=== PATIENT | female | born 1990 | race Caucasian/White ===

== ENCOUNTER 2017-09-07 09:03 | Emergency (ER) | END 2017-09-07 11:30 | disposition home or self-care (01) ==

== ENCOUNTER 2018-04-19 21:16 | Inpatient (IN) | payer OTHER ==
[~2018-04-19] VITALS: Ht 165.1 cm; Wt 95.9 kg
[~2018-04-19 21:16] MED LIST: ACET500C5 PO; ONDA4TAB8 PO
[2018-04-19] MEDS ORDERED: LACTATED RINGER'S 1,000 ML IV PRN (22:17)
[2018-04-19] MEDS ORDERED: OXYTOCIN 30 UNITS/LR 500 ML IV PRN (22:30)
[2018-04-19] MEDS ORDERED: MISOPROSTOL 200 MCG TAB PR PRN (22:30)
[2018-04-19] MEDS ORDERED: BUTORPHANOL 2 MG INJ IV PRN (22:30)
[2018-04-19] MEDS ORDERED: IBUPROFEN 600 MG TAB PO PRN (22:30)
[2018-04-19] MEDS ORDERED: LIDOCAINE 1% (MPF) 30 ML INJ INJ PRN (22:30)
[2018-04-19] MEDS ORDERED: CARBOPROST 250 MCG INJ IM PRN (22:30)
[2018-04-19] MEDS ORDERED: BUTORPHANOL 1 MG INJ IV PRN (22:30)
[2018-04-19] MEDS ORDERED: MINERAL OIL LIGHT 10 ML VIAL TOP ONE (22:30)
[2018-04-19] MEDS ORDERED: METHYLERGONOVINE 0.2 MG INJ IM PRN (22:30)
[2018-04-19] MEDS ORDERED: AMPICILLIN 2 GM/NS (PMX) 100 ML IV ONE (22:30)
[2018-04-19] MEDS ORDERED: OXYTOCIN 30 UNITS/LR 500 ML IV SCH ×3 (22:30)
[2018-04-19 22:37] VITALS: BP 112/59; PULSE 96; RESP 18
[2018-04-19 22:40] VITALS: Ht 165.1 cm; Wt 95.9 kg
[2018-04-19] MEDS: LACTATED RINGER'S 1,000 ML IV SCH (22:41)
--- NOTE | 2018-04-19 22:56 | TRIAGE ---
OB Triage Datetime Report Generated by CPN: 04/19/2018 22:56 Datetime: 04/19/2018 22:47 Assessment Type: Admission Assessment Maternal Assessment Level of Consciousness: Fully Conscious DTR's/Clonus: DTRs 2+; No Clonus Headache: Denies Blurred Vision: No Respiratory Effort: Unlabored; Regular Rhythm; Equal Expansion Breath Sounds, Left: Clear and Equal Breath Sounds, Right: Clear and Equal Nausea/Vomiting: Denies RUQ Epigastric Pain: Denies Facial Edema: None Fall Risk Assessment History of Falling: (0) No Secondary Diagnosis: (0) No Ambulatory Aid: (0) Bedrest/Nurse Assist IV Therapy: (0) No Gait: (0) Normal/Bedrest/Immobile Mental Status: (0) Oriented to Own Ability Fall Score: 0 Fall Risk Score Definition: No Risk: No action required Datetime: 04/19/2018 22:41 Time of Arrival: 04/06/2018 21:05 EGA: 36.6 Arrived By: Ambulatory Arrived From: Home Chief Complaint: sent from Dr. Melton office 5cm Movement: Present Contractions: Denies/Absent Time Contractions Began: 04/18/2018 20:30 Rupture of Membranes: Denies Vaginal Bleeding: None Vaginal Discharge: Denies Recent Sexual Intercouse: Denies Abdominal Trauma: Not Applicable Patient Complaints: None Time Provider Notified: 04/19/2018 21:45 Provider Notified: DR. MELTON Initial Plan: ADMIT TO L_D. VE Datetime: 04/19/2018 22:37 Temperature Route: Oral Datetime: 04/19/2018 21:35 Stage of : OB Triage Heart Rate FHR Baseline Rate: 150 Monitor Mode: External US Vaginal Exam Dilatation (cms): 5.0 Effacement (%): 70 Station: -2 Exam By: Marlin Manuel Status: Intact Vaginal Bleeding: Scant Cervix, Consistency: Soft Cervix, Position: Posterior Presentation 'A': Cephalic
[2018-04-20] MEDS ORDERED: PREN-19 PO (00:14)
[2018-04-20] MEDS: AMPICILLIN 1 GM/NS (PMX) 50 ML IV SCH ×3 (05:45→10:12)
[2018-04-20] MEDS: LACTATED RINGER'S 1,000 ML IV SCH ×2 (07:48→09:28)
--- NOTE | 2018-04-20 08:54 | PREAC ---
Date/Time of Note Date/Time of Note DATE: 04/20/18 TIME: 08:54 Anesthesia Eval and Record Evaluation Time Pre-Procedure Interview DATE: 04/20/18 TIME: 08:54 Age 27 Sex female NPO: 8 hrs Preoperative diagnosis labor epidural Planned procedure labor epidural Past Medical History Past Medical History: None Surgery & Anesthesia Issues No known issue Meds Anticoagulation: No Beta Alok within 24 hr: No Reason Beta Alok not given: Pt. not on B-Alok Reported Medications Vit #76/Iron,Carb/FA (Prenatabs Rx Tablet) 1 Each Tablet, 1 EACH PO DAILY, TAB 04/20/18 Discontinued Scripts Ondansetron Hcl* (Zofran*) 4 Mg Tablet, 4 MG PO Q6H for NAUSEA AND/OR VOMITING, #30 TAB Prov:RENO BRUSH PA-C 09/07/17 Acetaminophen* (Tylophen*) 500 Mg Capsule, 1 CAP PO Q6H PRN for PAIN AND OR ELEVATED TEMP, #30 CAP Prov:RENO BRUSH PA-C 09/07/17 Current Medications Lactated Ringer's 1,000 ml @ 125 mls/hr Q8H IV Last administered on 04/20/18at 07:48; Admin Dose 125 MLS/HR; Start 04/19/18 at 22:17 Ampicillin 50 ml @ 100 mls/hr Q4H IV Last administered on 04/20/18at 05:45; Admin Dose 100 MLS/HR; Start 04/20/18 at 02:30 Butorphanol Tartrate (Stadol) 1 mg Q2H PRN IV .PAIN; Start 04/19/18 at 22:30 Butorphanol Tartrate (Stadol) 2 mg Q2H PRN IV .PAIN; Start 04/19/18 at 22:30 Lidocaine (Xylocaine 1% (Mpf)) 30 ml ONCE PRN INJ .EPISIOTOMY; Start 04/19/18 at 22:30 Oxytocin/Lactated Ringer's 500 ml @ 500 mls/hr ONCE POST IV ; Start 04/19/18 at 22:30 Oxytocin/Lactated Ringer's 500 ml @ 125 mls/hr POST IV ; Start 04/19/18 at 22:30 Ibuprofen (Motrin) 600 mg ONCE PRN PO .PAIN 1-5; Start 04/19/18 at 22:30 Lactated Ringer's 1,000 ml @ 2,000 mls/hr Q30M PRN IV .ANESTHESIA; Start 04/19/18 at 22:17 Oxytocin/Lactated Ringer's 500 ml @ 0 mls/hr ONCE PRN IV .VAGINAL BLEEDING; Start 04/19/18 at 22:30 Methylergonovine Maleate (Methergine) 0.2 mg ONCE PRN IM .VAGINAL BLEEDING; Start 04/19/18 at 22:30 Carboprost Tromethamine (Hemabate) 250 mcg ONCE PRN IM .VAGINAL BLEEDING; Start 04/19/18 at 22:30 Misoprostol (Cytotec) 1,000 mcg ONCE PRN LA .VAGINAL BLEEDING; Start 04/19/18 at 22:30 Oxytocin/Lactated Ringer's 500 ml @ 0 mls/hr FOR AUGMENTATION IV Last administered on 04/20/18at 01:37; Admin Dose 1 MLS/HR; Start 04/19/18 at 22:30 Meds reviewed: Yes Allergies Coded Allergies: No Known Allergy (Unverified , 04/19/18) Allergies Reviewed: Yes Labs/Studies Labs Reviewed: Reviewed by anesthesiologist Result Diagram: 04/19/18 2230 Laboratory Tests 04/19/18 22:30 Blood Bank Test 04/19/18 22:30 Antibody Screen NEGATIVE Blood Type A POSITIVE Rh Immune Globulin Candidate NO test: Positive Pre-procedure Exam Last vitals Vital Signs Date Temp Pulse Resp B/P (MAP) Pulse Ox O2 O2 Flow FiO2 Time Delivery Rate 04/19/18 98.0 96 18 112/59 Room Air 22:37 (76) Airway: Adequate mouth opening, Adequate thyromental dist Mallampati: Mallampati III Teeth: Normal Lung: Normal Heart: Normal ASA Physical Status ASA physical status: 2 Emergency: None Planned Anesthetic Neuraxial: Epidural Planned Pain Management Epidural, Parenteral pain med Pre-operative Attestations Prior to commencing anesthesia and surgery, the patient was re-evaluated, there was verification of: *The patient's identity *The results of appropriate recent lab work and preoperative vital signs *The above evaluation not changing prior to induction *Anesthetic plan, risk benefits, alternative and complications discussed with patient/family; questions answered; patient/family understands, accepts and wishes to proceed. ANNY FIGUEROA MD Apr 20, 2018 08:54
[2018-04-20] MEDS ORDERED: ZOLPIDEM 5 MG TAB PO PRN (09:00)
[2018-04-20] MEDS ORDERED: HYDROmorphONE 0.5 MG/0.5 ML SYG IV PRN ×3 (09:00→18:14)
[2018-04-20] MEDS ORDERED: ONDANSETRON 4 MG INJ IV PRN ×2 (09:00→12:00)
[2018-04-20] MEDS ORDERED: NALOXONE (0.4 MG/ML) INJ IV PRN (09:00)
[2018-04-20] MEDS ORDERED: DIPHENHYDRAMINE 50 MG INJ IV PRN ×2 (09:00→12:00)
[2018-04-20] MEDS ORDERED: FENTAnyl 2MCG/ML-ROPIV 0.2% 100 ML BAG EPI SCH (09:00)
--- NOTE | 2018-04-20 09:34 | PAC ---
Date/Time of Note Date/Time of Note DATE: 04/20/18 TIME: 09:34 Post-Anesthesia Notes Post-Anesthesia Note Last documented vital signs Vital Signs Date Temp Pulse Resp B/P (MAP) Pulse Ox O2 O2 Flow FiO2 Time Delivery Rate 04/19/18 98.0 96 18 112/59 Room Air 22:37 (76) Activity: WNL Respiratory function: WNL Cardiovascular function: WNL Mental status: Baseline Pain reasonably controlled: Yes Hydration appropriate: Yes Nausea/Vomiting absent: Yes ANNY FIGUEROA MD Apr 20, 2018 09:34
--- NOTE | 2018-04-20 11:49 | HP ---
Date/Time of Note Date/Time of Note DATE: 04/20/18 TIME: 11:45 OB - History Hx of Present Last Menstrual Period: Jul 15, 2017 Estimated Due Date: Apr 28, 2018 : 2 Para: 1 Care: Good Care Obstetrical Complications: None Medical Complications: None Past Family/Social History * Past Medical, Surgical, Family and Obstetric Histories reviewed from chart. Blood Type: A+ Rubella: immune RPR/VDRL: Negative GBS Status: Positive HBsAG: Negative OB Admission Exam Vital Signs Vital Signs Vital Signs Date Temp Pulse Resp B/P (MAP) Pulse Ox O2 O2 Flow FiO2 Time Delivery Rate 04/19/18 98.0 96 18 112/59 Room Air 22:37 (76) Physical Exam HEENT: WNL Heart: Rhythm Normal Lungs: Clear, Equal Abdomen: WNL Extremities: Normal Reflexes: Normal Cervical Dilatation: 5cm Effacement: 75% Station: -2 Membranes: Intact Accelerations: Accelerations Present Varibility: Moderate Contractions on Admission: 6-10 Minutes Apart Intensity: Mild Last 72 hours Lab Results CBC & BMP 04/19/18 22:30 OB Assessment/Plan Reason for admission: active labor SHARIFA GRANT MD Apr 20, 2018 11:49
--- NOTE | 2018-04-20 11:52 | LDN ---
Date/Time of Note Date/Time of Note DATE: 04/20/18 TIME: 11:49 Delivery Summary Term in labor Augmentation of labor. Spontaneous vaginal delivery baby boy 9 No complications, no bleeding, uterus contracted well, small right periurethral laceration repaired under epidural anesthesia. Weeks of Gestation 38 and 6 Placenta Delivered: Spontaneously Meconium: none Episiotomy: No Laceration repair: Right paraurethral Anesthesia type: Epidural Sponge & Needle done & correct: Yes All needle counts correct: Yes Any foreign bodies felt in the: No Infant Delivery Information Sex Infant Sex: male Apgars 1 Minute: 9 5 Minute: 9 Suctioning Nose & mouth suctioned at raoul: Yes Umbilical Cord Umbilical cord with: 3 Vessels Cord presentations: no nuchal cord Cord Blood was obtained: Yes Mother & Baby Disposition Disposition Mom & Baby to Maternity; Good: Yes SHARIFA GRANT MD Apr 20, 2018 11:52
[2018-04-20] MEDS ORDERED: MAGNESIUM HYDROXIDE 30ML CUP PO PRN (12:00)
[2018-04-20] MEDS ORDERED: DIPHENHYDRAMINE 25 MG CAP PO PRN (12:00)
[2018-04-20] MEDS ORDERED: CARBOPROST 250 MCG INJ IM PRN (12:00)
[2018-04-20] MEDS ORDERED: DIBUCAINE 1% 30 GM OINT TOP PRN (12:00)
[2018-04-20] MEDS ORDERED: ACETAMINOPHEN 325 MG TAB PO PRN ×2 (12:00)
[2018-04-20] MEDS ORDERED: HYDROCODONE/APAP (5/325) TAB PO PRN ×2 (12:00)
[2018-04-20] MEDS ORDERED: MISOPROSTOL 200 MCG TAB PR PRN (12:00)
[2018-04-20] MEDS ORDERED: METHYLERGONOVINE 0.2 MG INJ IM PRN (12:00)
[2018-04-20] MEDS ORDERED: ONDANSETRON 4 MG TAB PO PRN (12:00)
[2018-04-20] MEDS ORDERED: OXYTOCIN 30 UNITS/LR 500 ML IV PRN (12:00)
[2018-04-20] MEDS: IBUPROFEN 800 MG TAB PO SCH ×2 (13:39→18:00)
[2018-04-20] MEDS: LACTATED RINGER'S 1,000 ML IV* SCH ×2 (16:20→19:52)
[2018-04-20 16:55] VITALS: BP 111/65; PULSE 128; RESP 18
[2018-04-20] MEDS ORDERED: KETOROLAC 30 MG INJ ONE (17:07)
[2018-04-20 18:00] VITALS: BP 131/63; PULSE 89; RESP 20
[2018-04-20 20:30] VITALS: BP 110/68; PULSE 87; RESP 20
[2018-04-21] VITALS: BP 106/60; PULSE 101; RESP 18
[2018-04-21] MEDS: IBUPROFEN 800 MG TAB PO SCH ×5 (00:01→23:33)
[2018-04-21] MEDS: LACTATED RINGER'S 1,000 ML IV* SCH (03:52)
[2018-04-21 04:00] VITALS: BP 99/55; PULSE 86; RESP 18
[2018-04-21] MEDS: LANOLIN HPA 1 PKT TOP PRN ×2 (06:58→21:28)
[2018-04-21 08:00] VITALS: BP 107/63; PULSE 68; RESP 18
[2018-04-21] MEDS: SENNA/DOCUSATE NA (8.6MG/50MG) TAB PO PRN ×2 (09:04→21:28)
--- NOTE | 2018-04-21 13:15 | PN ---
Date/Time of Note Date/Time of Note DATE: 04/21/18 TIME: 13:13 Assessment/Plan Lines/Catheters IV Catheter Type (from Nrs): Peripheral IV Subjective 24 Hr Interval Summary Day 1 post vaginal delivery. Afebrile feeling good Uterus contracted Lochia normal Extremities negative Normal reflexes, no edema, possible home in the morning. Constitutional: no complaints Feeding: advancing diet Detailed Summary Eyes: no complaints ENT: no complaints Respiratory: no complaints Cardiovascular: no complaints Gastrointestinal: no complaints Genitourinary: no complaints Musculoskeletal: no complaints Skin: no complaints Neurologic: no complaints Endocrine: no complaints Lymphatic: no complaints Psychological: no complaints, nl mood/affect Immunologic: no complaints Exam/Review of Systems Vital Signs Vitals Vital Signs Date Temp Pulse Resp B/P (MAP) Pulse Ox O2 O2 Flow FiO2 Time Delivery Rate 04/21/18 97.3 68 18 107/63 Room Air 08:00 (78) Intake and Output 04/20/18 04/20/18 04/21/18 1515:00 23:00 07:00 IntakeIntake Total 1825 ml 750 ml 750 ml OutputOutput Total 1255 ml 1200 ml BalanceBalance 570 ml -450 ml 750 ml Exam Constitutional: alert, oriented, well developed Psych: no complaints, nl mood/affect Head: normocephalic, atraumatic Eyes: nl conjunctiva, EOMI, nl lids, nl sclera ENMT: nl external ears & nose, nl lips & teeth, nl nasal mucosa & septum, mucosa pink and moist Neck: supple, non-tender Respiratory: clear to auscultation, normal air movement Cardiovascular: regular rate and rhythm, nl pulses Gastrointestinal: soft, nl liver, spleen, non-tender Musculoskeletal: nl extremities to inspection, nl gait and stance Extremities: normal pulses Neurological: BUSINESS ATTORNEY II-XII intact, nl mental status, nl speech, nl strength Skin: nl turgor, rash or lesions Lymph: nl lymph nodes Results Result Diagram: 04/21/18 0715 SHARIFA GRANT MD Apr 21, 2018 13:14
--- NOTE | 2018-04-21 13:15 | PD.PPDC ---
CARE COORDINATION MANAGER Discharge Instruction Condition [id number] Patient Condition: [id number] Good Diet [id number] Diet: [id number] Resume Regular Diet Activity/Restrictions [id number] Activity: [id number] Normal Activity May Shower [id number] Restrictions: [id number] No Exercising No Lifting No Driving No Sexual Activity Nothing in the Vagina No [place] No Tampons, douche Follow-up Follow-up with Physician: 6, Week/Weeks Return to clinic for [facility] [facility] Instructions: [id number] Fever greater than 101 Chills Worsening abdominal pain Excessive Vaginal Bleeding More than 2 pads per hour Unable to tolerate diet [id number] OB Instructions: [id number] Breast Tenderness Depression Blurried Vision Headache SHARIFA GRANT MD Apr 21, 2018 13:15
[2018-04-21 15:20] VITALS: BP 117/63; PULSE 89; RESP 18
[2018-04-22 04:00] VITALS: BP 91/55; PULSE 83; RESP 18
[2018-04-22] MEDS: IBUPROFEN 800 MG TAB PO SCH ×2 (05:48→11:58)
[2018-04-22 07:50] VITALS: BP 87/54; PULSE 76; RESP 18
--- NOTE | 2018-04-22 08:53 | DS ---
Date/Time of Note Date/Time of Note DATE: 04/22/18 TIME: 08:52 Obstetrical Discharge Record Final Diagnosis Final Diagnosis: Term delivered Vaginal Delivery Obstetrical Delivery: Spontaneous Complications Augmentation: Yes Condition on Discharge Physical Assessment Voiding: Yes Bowel Movement: Yes Breast: Soft, non-tender, Filling, Engorged Fundus: Firm Calf Tenderness: No Patient Condition: Good SHARIFA GRANT MD Apr 22, 2018 08:53
[2018-04-22] MEDS ORDERED: VARICELLA VACCINE LIVE/PF 1,350 UNIT/0.5 ML ML SC* ONE (09:00)
[2018-04-22] MEDS ORDERED: DIPHTH/TET/ACEL PERTUSS (ADULT) 0.5 ML VIAL IM* ONE (09:00)
[2018-04-22] MEDS ORDERED: MEASLES,MUMPS,RUBELLA VACCINE INJ SC* ONE (09:00)
[2018-04-22] MEDS: SENNA/DOCUSATE NA (8.6MG/50MG) TAB PO PRN (09:16)
--- NOTE | 2018-04-30 11:27 | DELSUM ---
Delivery Summary A-C Datetime Report Generated by CPN: 04/30/2018 11:20 DELIVERY PERSONNEL Set Painter: Carol Bashirnda MATERNAL INFORMATION Delivery Anesthesia: Epidural Medications in Delivery: 30 UNITS PITOCIN, Metheragine 0.2mg IM Delivery QBL (ml): 172 Placenta Cultured: No Maternal Complications: None LABOR SUMMARY EDC: 04/28/2018 00:00 No. Babies in Womb: 1 Attempted: No Labor Anesthesia: Epidural LABOR INFORMATION Reason for Induction: Not Applicable Onset of Labor: 04/20/2018 06:30 Complete Dilatation: 04/20/2018 10:30 Oxytocin: Augmentation Group B Beta Strep: Positive Antibiotics # of Doses: 3 Antibiotics Time of Last Dose: 04/20/2018 10:12 Steroids Given: None Reason Steroids Not Administered: Not Applicable MEMBRANES Membranes Rupture Method: Artificial Rupture of Membranes: 04/20/2018 10:04 Length of Rupture (hr): 0.95 Amniotic Fluid Color: Clear Amniotic Fluid Amount: Small Amniotic Fluid Odor: None STAGES OF LABOR Stage 1 hr: 4 Stage 1 min: 0 Stage 2 hr: 0 Stage 2 min: 31 Stage 3 hr: 0 Stage 3 min: 3 Total Time in Labor hr: 4 Total Time in Labor min: 34 VAGINAL DELIVERY Episiotomy: None Laceration Extension: First Degree Laceration Type: Periurethral Other Laceration: Right Laceration Repair: Yes Initial Vag Sponge Count: 10 Final Vag Sponge Count: 10 Initial Vag Sharps Count: 1+1 Final Vag Sharps Count: 2 Sponge Count Correct: Yes; Vaginal Sweep Performed Sharps Count Correct: Yes BABY A INFORMATION Infant Delivery Date/Time: 04/20/2018 11:01 Method of Delivery: Vaginal Born in Route : No : N/A Forceps: N/A Vacuum Extraction: N/A Shoulder Dystocia : N/A SHOULDER DYSTOCIA BABY A Infant Delivery Date/Time: 04/20/2018 11:01 PRESENTATION/POSITION BABY A Presentation: Cephalic Cephalic Presentation: Vertex Breech Presentation: N/A PLACENTA INFORMATION BABY A Placenta Delivery Time : 04/20/2018 11:04 Placenta Method of Delivery: Spontaneous Placenta Status: Delivered SCORES BABY A Heart Rate 1 min: >100 bpm Resp Effort 1 min: Good Cry Reflex Irritability 1 min: Cough/Sneeze/Pulls Away Muscle Tone 1 min: Active Motion Color 1 min: Body [place], Extremit Blue Resuscitation Effort 1 min: Tactile Stimulation SCORE 1 MIN: 9 Heart Rate 5 min: >100 bpm Resp Effort 5 min: Good Cry Reflex Irritability 5 min: Cough/Sneeze/Pulls Away Muscle Tone 5 min: Active Motion Color 5 min: Body [place], Extremit Blue Resuscitation Effort 5 min: Tactile Stimulation SCORE 5 MIN: 9 INFORMATION BABY A Gestational Age at Delivery: 38.6 Gestational Status: Early Term- 37- 38.6 Weeks Infant Outcome : Liveborn Condition : Stable Infant Sex: Male IDENTIFICATION/MEDS BABY A ID Band Number: [id number] ID Band Location: Right Leg; Left Arm Sensor Applied: Yes Sensor Number: [id number] Sensor Location : Cord Clamp Vitamin K Given : Not Given Erythromycin Given: Not Given WEIGHT/LENGTH BABY A Birthweight (gm): 3455 Infant Weight (lb): 7 Infant Weight (oz): 10 Length (in): 20.00 Infant Length (cm): 50.80 CORD INFORMATION BABY A No. Cord Vessels: 3 Nuchal Cord : N/A Cord Blood Taken: Yes Suction: Mouth; Nose ASSESSMENT BABY A Infant Complications: Multiple Variable Decels Physical Findings at Delivery: Within Normal Limits Respirations: Appears Normal Video Games Storywriter/ALS Called : No Care By: Maikol Brito Transferred To: Remains with Mother
== END 2018-04-22 12:15 | disposition home or self-care (01) | DRG 807 ==
LOC: OBT 21:16 → L-D 21:17 → OBT 21:45 → L-D 21:45 → PP1 04-20 17:10
PROVIDERS: ADMIT Obstetrics & Gynecology; ATTEND Obstetrics & Gynecology
PROC: 10E0XZZ Delivery of Products of Conception, External Approach (ICD-10-PCS; principal; 2018-04-20)
PROC: 0UQMXZZ Repair Vulva, External Approach (ICD-10-PCS; 2018-04-20)
DX: O71.82 Other specified trauma to perineum and vulva (principal); Z37.0 Single live birth; Z3A.38 38 weeks gestation of pregnancy; Z22.330 Carrier of Group B streptococcus
CPT/HCPCS: 62319; 85025; 85610; 85730; 86592; 86850; 86900; 86901; 87340; 90716; G0463; J0290; J1170; J1885; J2210; J2405; J2590; J3010; J7120

== ENCOUNTER 2018-04-26 16:48 | Emergency (ER) | payer SELFPAY ==
[~2018-04-26] VITALS: Ht 172.7 cm; Wt 92.1 kg
[~2018-04-26 16:48] MED LIST changes: +PREN-19 PO
[2018-04-26 17:03] VITALS: BP 113/59; PULSE 101; RESP 20; Ht 172.7 cm; Wt 92.1 kg
== END 2018-04-26 20:14 | disposition left against medical advice (07) ==
LOC: FTE 16:48
DX: Z53.21 Procedure and treatment not carried out due to patient leaving prior to being seen by health care provider (principal)